=== PATIENT | male | born 1990 | race Caucasian/White ===

== ENCOUNTER 2019-01-11 19:09 | Emergency (ER) | payer OTHER ==
[2019-01-11] MEDS ORDERED: DIPHTH,PERTUSS(ACELL),TET 0.5 ML DISP.SYRIN IM ONE ×2 (19:21→19:29)
--- NOTE | 2019-01-11 19:23 | PDOC ---
Rapid Medical Evaluation Chief Complaint: Injury Time Seen by Provider: 01/11/19 19:19 Medical Evaluation: 01/11/19 19:19 The patient has a 2cm laceration to the L lateral foot after [place] Unsure of last tetanus shot. No active bleeding Exam: 2cm laceration to the L lateral foot Orders Boostrix Pt to proceed to the ER for further eval. Discharge Disposition - Diagnosis Laceration - Referrals - Patient Instructions - Post Discharge Activity
[2019-01-11 19:28] VITALS: BP 131/63; PULSE 80; TEMP 98; BMI 27.3
--- NOTE | 2019-01-11 20:27 | PDOC ---
History of Present Illness - General Chief Complaint: Injury Stated Complaint: LACERATION Time Seen by Provider: 01/11/19 19:19 - History of Present Illness Initial Comments: 01/11/19 20:23 28-year-old male presents for laceration on his right foot. He states he was on a rock in the [facility] when he lacerated his foot. Around the rock there was animal feces and did finish. He isn't sure of his current tetanus status. Past History - Past Medical History Allergies/Adverse Reactions: Allergies Allergy/AdvReac Type Severity Reaction Status Date / Time No Known Allergies Allergy Verified 01/11/19 19:22 Home Medications: Ambulatory Orders Levofloxacin [Levaquin] 750 mg PO DAILY #7 tablet 01/11/19 COPD: No - Suicide/Smoking/Psychosocial Hx Smoking History: Never smoked Have you smoked in the past 12 months: No Information on smoking cessation initiated: No Hx Alcohol Use: No Drug/Substance Use Hx: No Review of Systems - Review of Systems Musculoskeletal: Yes: See HPI *Physical Exam - Vital Signs Last Vital Signs Temp Pulse Resp BP Pulse Ox 98 F 80 16 131/63 100 01/11/19 19:19 01/11/19 19:19 01/11/19 19:19 01/11/19 19:19 01/11/19 19:19 - Physical Exam Comments: 01/11/19 20:23 There is a 1 cm linear laceration exposing subcutaneous fat on the skin overlying the lateral aspect of the right foot fifth MTPJ there are no gross sensory motor deficits is neurovascularly intact. ED Treatment Course - Medications Given in the ED: ED Medications Discontinued Medications Generic Name Dose Route Start Last Admin Trade Name Freq PRN Reason Stop Dose Admin Diphtheria/Tetanus/Acell Pertussis 0.5 ml 01/11/19 19:21 01/11/19 19:34 Boostrix - IM 01/11/19 19:22 0.5 ml .ONCE ONE Administration Medical Decision Making - Medical Decision Making 01/11/19 20:24 This case was discussed with the ER attending. I anesthetized the patient scrubbed the wound with chlorhexidine copiously flushed with a liter of saline mixed with Betadine and applied a dry sterile dressing without any ointment. The concern is vibrio infection. I will place the patient on Levaquin he will follow-up with his primary care doctor in 1-2 days and return to the emergency room should there be any indication of infection. Wound care and signs and symptoms of infection were discussed with the patient. *DC/Admit/Observation/Transfer Diagnosis at time of Disposition: Laceration - Discharge Dispostion Disposition: HOME Condition at time of disposition: Stable Decision to Admit order: No - Prescriptions Prescriptions: Levofloxacin [Levaquin] 750 mg PO DAILY #7 tablet - Referrals Referrals: Kenyatta Ahuja MD [Staff Physician] - - Patient Instructions Additional Instructions: Tylenol and Motrin for pain. Please take prophylactic antibiotics as directed for the next 7 days one tablet per day. Return to the emergency room should symptoms worsen. Return to the emergency room should there be any increasing pain drainage redness or swelling around the area of the wound. Please also take note of how you feel, any decreased activity level or feelings of illness such as fever chills or night sweats she should return to the emergency room immediately. Please start the antibiotics today. Follow-up with a primary care physician without fail in 1-2 days for a wound check and return to the emergency room in 1-2 days for wound check should you've fail to follow-up with a primary care physician. Keep the wound clean and dry for the next 48 hours and leave the dressing on. After 48 hours remove the dressing wash the area thoroughly with soap and water and leave it open to air as much as possible uncovered. He will going outside the house please cover it with a large Band- Aid as shown to in the emergency room and remove the Band-Aid at home and allow the wound to be open to air. Wash the wound 2-3 times a day with normal soap and water. Please wear shoes and keep the wound covered when you're outside the house flip-flops sandals or slide slippers are not okay. Do not apply any ointments such as bacitracin or Neosporin. - Post Discharge Activity
== END 2019-01-11 20:30 | disposition home or self-care (01) ==
LOC: JER 19:09
PROC: 3E0234Z Introduction of Serum, Toxoid and Vaccine into Muscle, Percutaneous Approach (ICD-10-PCS; principal; 2019-01-11)
DX: S91.311A Laceration without foreign body, right foot, initial encounter (principal); W45.8XXA Other foreign body or object entering through skin, initial encounter; Y93.89 Activity, other specified; Y92.828 Other wilderness area as the place of occurrence of the external cause
CPT/HCPCS: 90715; 99281-25